=== PATIENT | female | born 1965 | race Caucasian/White ===

== ENCOUNTER 2018-01-24 17:07 | Emergency (ER) | payer MEDICAID ==
[2018-01-24 17:18] VITALS: BP 140/85; BMI 27.4
--- NOTE | 2018-01-24 18:33 | DR.FBACK ---
HPI - Time Seen Time seen: 18:20 - PCP Primary Care Physician: JEAN PARSON - HPI Comment HPI Comment: NO DYSURIA OR FEVER. NO HEMATURIA. - Complaint Chief Complaint Doctor Comments: INCREASING LOWER BACK PAIN TIMES SEVERAL HOURS. MAINLY LEFT FLANK AREA. Chief Complaint:: PT C/O LEFT FLANK PAIN FOR MONTHS AND PT C/O THE LAST WEEK PAIN IS WORSE.. BR PT C/O THE PAIN THAT IS CONSTANT POUNDING AND FELLS LIKE A STABBING PAIN WHEN SHE MOVES,,BR Self Treatment fo Chief Complaint: REG MEDS , HEATING PAD, CRANBERRY PILLLS,, - Reviewed Nurses Notes Review: Yes - Source History Provided: Patient, Family Member - Mode of Arrival Mode of Arrival: Ambulatory - Timing Onset of Chief Complaint: 12/24/17 - Duration Duration: Constant Duration: Hours - Location Back Pain Location: Left, Flank Radiation To: Buttock - Severity Severity: Moderate - Quality Quality: Aching, Sharp - Context Onset: Spontaneous Circumstance: Spontaneous History of: Chronic Back Pain - Modifying Factors Worsened By: Twisting - Associated Signs and Symptoms Back Pain Symptoms: None Numbness: None Weakness: None PMH - PMH Past Medical History: Yes Past Medical History Comment: BODERLINE DM. > CHOLESTEROL Past Surgical History: Yes Surgical History: Appendectomy, Cholecystectomy Past Surgical History Comment: HERNIA, HYS, CSECTION TIMES, TUBAL,. NECK SURGERY , LEFT KNEE,, - Family History History of Family Medical Conditions: No - Social History Does patient currently use any type of tobacco product: No Have you used tobacco products in the last 12 months: No Type of Tobacco Use: None Does any household member use tobacco: No Alcohol Use: None Do you use any recreational Drugs:: No Lives With: Family Lives Where: Home - infectious screening In the last 2 months have you had wt loss of >10#?: NO Have you had fever, night sweats or hemotysis?: No Have you traveled outside the country in the last 6 months?: No Isolation: Standard ROS - Review of Systems Constitutional: No Symptoms Reported. negative: Chills, Fever, Weakness, Fatigue Eyes: No Symptoms Reported. negative: Eye Pain, Discharge ENTM: No Symptoms Reported. negative: Ear Pain, Nose Discharge, Nose Congestion , Throat Pain Respiratoy: No Symptoms Reported. negative: Productive Cough, Non-Productive Cough, Short of Breath, Wheezing, Hemoptysis Cardiovascular: No Symptoms Reported. negative: Chest Pain Gastrointestinal/Abdominal: Abdominal Pain. negative: Constipation, Diarrhea, Nausea, Vomiting Genitourinary: No Symptoms Reported. negative: Dysuria, Frequency, Hematuria Neurological: negative: Headache, Weakness, Dizziness Musculoskeletal: Muscle Pain Integumentary: No Symptoms Reported Hematologic/Lymphatic: No Symptoms Reported Endocrine: No Symptoms Reported All Other Systems: Reviewed and Negative PE - Vitals Vital Signs: Temp Pulse Resp BP Pulse Ox 01/24/18 17:12 97.6 F 84 18 140/85 100 - General Limitations: No Limitations General Appearance: Alert - Head Head Exam: Normal Inspection - Eyes Eye exam: Normal Appearance - ENT ENT Exam: Normal External Ear Exam - Chest Chest Inspection: Symmetric Chest Wall Rise - Respiratory Respiratory Exam: Normal Lung Sounds Bilat Respiratory Exam: Bilateral Clear to Auscultation - Cardiovascular Cardiovascular Exam: Regular Rate, Normal Rhythm, Normal Heart Sounds - Abdominal Exam Abdominal Exam: Normal Bowel Sounds, Soft. negative: Tenderness - Genitourinary External Exam: Female: Deferred : Speculum Exam (Female): Deferred : Bimanual Exam (female): Deferred - Extremities Extremities Exam: Normal Inspection - Back Back Exam: Paraspinal Tenderness - Neurological Neurological Exam: Alert, Oriented X3, CN II-XII Intact. negative: Motor Sensory Deficit - Psychiatric Psychiatric Exam: Normal Affect, Normal Mood - Skin Skin Exam: Normal Color MDM - Additional Information Additional Information Obtained From: Family - Differential Diagnosis Differential Diagnosis: DJD, Fracture, Musculoskeletal Pain, Pyelonephritis, Strain, Urolithiasis Course - Treatment Treatment: SEE ORDERS. - Reevaluation 1st: Improved (WITH IM MEDS.) - Education/Counseling Education/Counseling: Patient, Family, Education Educated On: Diagnosis, Needs for Follow Up ROR - Labs Reviewed Laboratory Results Reviewed?: Yes Laboratory: Specimen Type Clean catch urine 01/24/18 18:28 Urine Color Yellow (YELLOW) 01/24/18 18:28 Urine Appearance Clear (CLEAR) 01/24/18 18:28 Urine pH 5.0 (5.0 - 8.0) 01/24/18 18:28 Ur Specific [place] 1.015 (1.000-1.030) 01/24/18 18:28 Urine Protein Negative (NEGATIVE) 01/24/18 18:28 Urine Glucose (UA) Negative (NEGATIVE) 01/24/18 18:28 Urine Ketones Negative (NEGATIVE) 01/24/18 18:28 Urine Occult Blood 1+ (NEGATIVE) 01/24/18 18:28 Urine Nitrite Negative (NEGATIVE) 01/24/18 18:28 Urine Bilirubin Negative (NEGATIVE) 01/24/18 18:28 Urine Urobilinogen Normal (NORMAL) 01/24/18 18:28 Ur Leukocyte Esterase Negative (NEGATIVE) 01/24/18 18:28 Urine RBC 0-2 /HPF (NONE SEEN) 01/24/18 18:28 Urine WBC 0-2 /HPF (NONE SEEN) 01/24/18 18:28 Ur Squamous Epith Cells Rare /HPF (NEGATIVE) 01/24/18 18:28 Urine Bacteria Negative /HPF (NEGATIVE) 01/24/18 18:28 Ur Culture Indicated? No/not indicated 01/24/18 18:28 - XRAY XRAY Interpreted by: Radiologist XRAY Findings: REPORT DISCUSS WITH PATIENT. - Diagnosis Discharge Problem: Back pain, Kidney stone - Discharge Plan Disposition: 01 HOME, SELF-CARE Condition: Stable - Follow ups/Referrals Follow ups/Referrals: JEAN HORAN [Primary Care Provider] - 01/25/18 - Instructions Instructions: Kidney Stones, [id number], Back Pain, Adult, [id number] Additional Instructions: RETURN TO ED IF WORSE.
[2018-01-24] MEDS ORDERED: TORADOL 60 MG VIAL IM ONE (18:34)
[2018-01-24] MEDS ORDERED: NORFLEX INJ IM ONE (18:35)
[2018-01-24] MEDS ORDERED: TORADOL 60 MG VIAL ONE (18:40)
[2018-01-24] MEDS ORDERED: NORFLEX INJ ONE (18:40)
[2018-01-24 18:45] LABS: APPEARANCE,URINE CLEAR (CLEAR); BILIRUBIN,URINE NEGATIVE (NEGATIVE); BLOOD/HEMOGLOBIN,URINE 1+ (NEGATIVE); COLOR,URINE YELLOW (YELLOW); GLUCOSE, URINE NEGATIVE (NEGATIVE); KETONES,URINE NEGATIVE (NEGATIVE); LEUKOCYTE ESTERASE ,URINE NEGATIVE (NEGATIVE); NITRITES,URINE NEGATIVE (NEGATIVE); PROTEIN,URINE NEGATIVE (NEGATIVE); UROBILINOGEN,URINE NORMAL (NORMAL)
[2018-01-24 18:49] LABS: BACTERIA,URINE NEGATIVE /HPF (NEGATIVE); RBC,URINE 0-2 /HPF (NONE SEEN); SQUAMOUS EPITHELIAL CELL,UR RARE /HPF (NEGATIVE)
--- NOTE | 2018-01-24 19:15 | CT ---
CT abdomen and pelvis without contrast Indication: Left flank pain Comparison: None available Technique: Multiple axial images of the abdomen and pelvis were obtained from the lung bases to the pubic symphy sis without the administration of IV contrast. Findings: The visualized portions of the lung bases are unremarkable. The bony structures are grossly intact. Given the limitations of lack of IV contrast administration the liver, spleen, pancreas, and adrenal glands are unremarkable in their CT appearance. Previous cholecystectomy is noted. Tiny stone is noted within the lower pole left kidney on coronal image 36. There is no left-sided hyd ronephrosis or ureteral stone. No bowel wall thickening or bowel dilatation is present. The colon and rectum are unremarkable. The urinary bladder is grossly unremarkable. No pelvic or adnexal mass. No mesenteric lymphadenopathy or stranding can be observed. No free fluid or free air is seen within the abdomen. IMPRESSION: 1. Punctate nonobstructing left nephrolithiasis. Reported By:
== END 2018-01-24 19:39 | disposition home or self-care (01) ==
LOC: ER 17:22
DX: N20.0 Calculus of kidney (principal); M54.5 Low back pain
CPT/HCPCS: 74176; 81001; 96372; 99283; J1885; J2360